=== PATIENT | male | born 1975 | race Caucasian/White ===

== ENCOUNTER 2023-12-05 08:41 | Emergency (ER) | payer SELFPAY ==
[~2023-12-05] VITALS: Ht 167.6 cm; Wt 77.5 kg
[2023-12-05 08:47] VITALS: O2SAT 97
[2023-12-05] MEDS ORDERED: DICYCLOMINE 10 MG/5 ML ORAL SYR PO STA (10:30)
[2023-12-05] MEDS: DICYCLOMINE HCL 10MG CAPSULE PO NR (10:42)
[2023-12-05 11:00] LABS: CHLORIDE 108 mEq/L (98-107); POTASSIUM 4.7 mEq/L (3.5-5.1); SODIUM 138 mEq/L (136-145)
[2023-12-05 11:01] LABS: CALCIUM 9.1 mg/dL (8.7-10.4); CARBON DIOXIDE 27 mEq/L (21-32)
[2023-12-05 11:05] LABS: BASOPHILS % 0.3 % (0.0-2.0); EOSINOPHILS % 0.4 % (0.0-5.0); HEMOGLOBIN. 16.3 g/dL (14.0-18.0); LYMPHOCYTES % 9.9 % (20.0-50.0); MEAN CORPUSCULAR VOLUME 94.1 fL (80.0-94.0); MEAN PLATELET VOLUME 8.8 fl (7.4-10.4); MONOCYTES % 3.5 % (2.0-8.0); NEUTROPHILS % 85.9 % (40.0-76.0); PLATELET 219 x1000/uL (130-400); PROTHROMBIN TIME 10.9 sec (9.6-11.0); RED BLOOD CELL COUNT 5.11 mill/uL (4.7-6.1); RED CELL DISTRIBUTION WIDTH 13.2 % (11.6-14.6); WHITE BLOOD COUNT 11.8 x1000/uL (4.5-11.0)
[2023-12-05 11:06] LABS: CREATININE 0.7 mg/dL (0.6-1.3); GLUCOSE 113 mg/dL (70-105); UREA NITROGEN BLOOD 11 mg/dL (9-23)
[2023-12-05 11:08] LABS: ALANINE AMINOTRANSFERASE 44 IU/L (10-49); ALBUMIN 4.4 g/dL (3.2-4.8); ASPARTATE AMINOTRANSFERASE 24 IU/L (<34); BILIRUBIN DIRECT 0.2 mg/dL (<=3.0); BILIRUBIN TOTAL 0.7 mg/dL (0.1-1.0); PROTEIN TOTAL 7.5 g/dL (6.0-8.3)
[2023-12-05] MEDS: ONDANSETRON 4MG ODT PO STA (11:46)
[2023-12-05] MEDS: FAMOTIDINE 20MG TABLET PO ONE (11:46)
[2023-12-05] MEDS: MAGNESIUM/ALUMINUM HYDROXIDE/SIMETHICONE 30ML UDC PO STA (11:46)
[2023-12-05] MEDS ORDERED: FAMO-135 MT (13:39)
[2023-12-05 14:00] VITALS: BP 114/70; PULSE 60; RESP 18; TEMP 37.16964; O2SAT 97
== END 2023-12-05 14:25 | disposition home or self-care (01) ==
LOC: ER 08:41
DX: R10.13 Epigastric pain (principal)
CPT/HCPCS: 80076; 80048; 83690; 85025; 85610; 36415; 74176; 99284; Q0162; Z7610 ×2